=== PATIENT | male | born 1965 | race Caucasian/White ===

== ENCOUNTER 2017-12-22 07:17 | Day surgery (SDC) | payer BC ==
[~2017-12-22] VITALS: Ht 195.6 cm; Wt 125.5 kg
[2017-12-22 08:07] VITALS: BP 133/90; PULSE 75; TEMP 98.4
[2017-12-22 09:05] VITALS: BP 129/98; PULSE 86; TEMP 98.5
[2017-12-22 09:20] VITALS: BP 116/71; PULSE 63
[2017-12-22 09:35] VITALS: BP 114/71; PULSE 63
== END 2017-12-22 09:45 | disposition home or self-care (01) ==
LOC: SDCO 07:17
DX: Z12.11 Encounter for screening for malignant neoplasm of colon (principal)
CPT/HCPCS: J2250; J2405; J3010; J7030